=== PATIENT | male | born 1940 | race Caucasian/White ===

== ENCOUNTER 2022-01-03 10:56 | Day surgery (SDC) | payer MEDICARE ==
[2021-12-30 15:26] LABS: BASOPHILS % (AUTO) 0.3 % (0.0-5.0); EOSINOPHILS % (AUTO) 3.9 % (0.0-8.0); HEMATOCRIT 43.3 % (42-54); LYMPHOCYTES % (AUTO) 10.1 % (21.0-51.0); MEAN CORPUSCULAR HEMOGLOBIN 31.1 pg (27.0-33.0); MEAN CORPUSCULAR HGB CONC 33.3 g/dL (32.0-36.0); MEAN CORPUSCULAR VOLUME 93.5 fL (79-99); MONOCYTES % (AUTO) 7.2 % (3.0-13.0); NEUTROPHILS % (AUTO) 78.2 % (40.0-77.0); PLATELET COUNT (AUTO) 212 K/uL (130-400); RED BLOOD CELL COUNT(AUTO) 4.63 MIL/uL (4.50-6.20); RED CELL DISTRIBUTION WIDTH 14.4 % (11.0-15.5)
[2021-12-30 15:28] LABS: APPEARANCE,URINE Clear (CLEAR); BILIRUBIN,URINE Negative (NEGATIVE); COLOR,URINE Yellow (YELLOW); GLUCOSE, URINE (UA) Negative (NEGATIVE); KETONES,URINE Trace mg/dL (NEGATIVE); LEUKOCYTE ESTERASE ,URINE Trace (NEGATIVE); NITRATE,URINE Negative (NEGATIVE); OCCULT BLOOD,URINE Negative (NEGATIVE); PROTEIN,URINE Negative (NEGATIVE)
[2021-12-30 15:43] LABS: CREATININE 1.2 mg/dL (0.5-1.5); POTASSIUM 4.1 mmol/L (3.5-5.1)
[2021-12-30 15:45] LABS: INR 1.05 (0.85-1.15); PROTHROMBIN TIME 11.4 SEC (9.6-11.6)
[2021-12-30 15:46] LABS: PARTIAL THROMBOPLASTIN TIME 30.1 SEC (26.3-35.5)
[2021-12-30 15:49] LABS: BACTERIA,URINE Rare /HPF (None Seen); CALCIUM OXALATE CRYSTALS,UR Moderate /LPF (None Seen); MUCUS,URINE Rare LPF (None Seen); RBC,URINE 0-1 /HPF (0-1); SQUAMOUS EPITHELIAL CELL,UR 0-2 /HPF (0-2)
[2022-01-03] VITALS (9 sets, daily range): BP systolic 114–150; BP diastolic 50–75
[~2022-01-03] VITALS: Ht 175.3 cm; Wt 99.2 kg
[~2022-01-03 10:56] MED LIST: ASPI-1443 PO; ATOR40TA71 PO; CLOP75TA32 PO; DULO20CA18 PO; DUTA0.5C37 PO; FAMO40TA7 PO; FLUT16H NS; PANT40TA54 PO; PYRI100T10 PO; TRAZ-187 PO; triamcinolone TP; vitamin b12 PO
[2022-01-03] MEDS ORDERED: 0.9%NACL 1000ML 1,000 ML IV ONE (11:57)
[2022-01-03] MEDS ORDERED: IOHEXOL-350 50ML VIAL IV ONE (16:37)
[2022-01-03] MEDS ORDERED: NITROGLYCERIN 50MG VIAL ONE (16:37)
[2022-01-03] MEDS ORDERED: LIDOCAINE HCL 1% 20 ML VIAL ONE (16:37)
[2022-01-03] MEDS ORDERED: IOHEXOL 350 MG/ML 100ML INFUS..BTL IV ONE (16:38)
[2022-01-03] MEDS ORDERED: MIDAZOLAM HCL 1 MG/ML 2ML VIAL ONE (16:38)
[2022-01-03] MEDS ORDERED: FENTANYL CITRATE PF 50 MCG/1 ML 2ML VIAL ONE (16:39)
[2022-01-03] MEDS ORDERED: DiphenhydrAMINE HCL 50 MG/ML VIAL ONE (17:28)
== END 2022-01-03 21:50 | disposition home or self-care (01) ==
LOC: DAH 10:56
PROVIDERS: ATTEND Internal Medicine Cardiovascular Disease
DX: I25.10 Atherosclerotic heart disease of native coronary artery without angina pectoris (principal); I11.0 Hypertensive heart disease with heart failure; I50.22 Chronic systolic (congestive) heart failure; E78.5 Hyperlipidemia, unspecified; Z79.899 Other long term (current) drug therapy; Z98.890 Other specified postprocedural states; Z79.82 Long term (current) use of aspirin; Z79.01 Long term (current) use of anticoagulants; Z95.5 Presence of coronary angioplasty implant and graft
CPT/HCPCS: 36415; 71045; 80048; 81001; 85025; 85610; 85730; 93005; 93458; A4215; A4221; A4222; A4223; A4663; C1760; C1894; J1200; J1644; J2250; J3010; J3490; J7030; Q9965; Q9967 ×2; 99156; 99157